=== PATIENT | male | born 1970 | race Caucasian/White ===

== ENCOUNTER 2021-09-27 08:58 | Emergency (ER) | payer OTHER ==
[~2021-09-27] VITALS: Ht 160 cm; Wt 72.6 kg
[2021-09-27] MEDS ORDERED: TUSSIN DM LIQU118 ML PO (12:13)
[2021-09-27] MEDS ORDERED: MEDROLPACK PO (12:13)
[2021-09-27] MEDS ORDERED: FLONASE ALLERG9.9 ML NASAL (12:14)
[2021-09-27] MEDS ORDERED: SINUS RINSE ST1 EACH NASAL (12:14)
== END 2021-09-27 13:04 | disposition home or self-care (01) ==
LOC: ER 08:58
DX: U07.1 COVID-19 (principal)